=== PATIENT | female | born 1940 | race Caucasian/White ===

== ENCOUNTER 2019-12-03 10:50 | Outpatient (CLI) | payer OTHER, SELFPAY ==
[2019-12-03 11:40] LABS: Hemoglobin 7.9 g/dL (11.5-15.3); Mean Corpuscular HGB Conc 31.6 g/dL (30.0-36.0); Mean Corpuscular Hemoglobin 26.7 pg (28.0-34.0); Mean Corpuscular Volume 84.5 fL (81-99); Mean Platelet Volume 10.2 fL (7.4-10.4); Nucleated Red Blood Cells % 0 %; Platelet Count 35 10^3/cmm (130-400); Red Blood Count 2.96 10^6/uL (4.1-5.3)
[2019-12-03 11:51] LABS: Alanine Aminotransferase 21 U/L (0-33); Alkaline Phosphatase 114 IU/L (35-105); Anion Gap 20.3 (5-19); Aspartate Amino Transferase 11 U/L (0-32); Blood Urea Nitrogen 14 mg/dL (8-23); Calcium 8.9 mg/Dl (8.8-10.2); Carbon Dioxide 21 mmol/L (22-29); Chloride 93 mmol/L (98-107); Globulin 3.3 g/dL (1.3-4.6); Glucose 152 mg/dL (74-106); Lactate Dehydrogenase 605 U/L (135-214); Potassium 3.3 mmol/L (3.5-5.1); Sodium 131 mmol/L (136-145); Total Bilirubin 0.7 mg/dL (0.15-1.2); Total Protein 6.3 g/dL (6.6-8.7); Uric Acid 2.3 mg/dL (2.4-5.7)
[2019-12-03 13:39] LABS: White Blood Count < 0.1 10^3/uL (4.0-10.0)
[2019-12-03 14:57] LABS: Phosphorus 1.8 mg/dL (2.5-4.5)
== END 2019-12-03 10:51 | disposition home or self-care (01) ==
LOC: LAB 10:55
PROVIDERS: Visit Provider Internal Medicine Medical Oncology
DX: C83.38 Diffuse large B-cell lymphoma, lymph nodes of multiple sites (principal)
CPT/HCPCS: 36415; 80053; 83615; 84100; 84550; 85025

== ENCOUNTER 2019-12-05 13:34 | Outpatient (CLI) | payer OTHER, SELFPAY ==
[2019-12-05 14:11] LABS: Hematocrit 21.7 % (37.0-47.0); Hemoglobin 7.2 g/dL (11.5-15.3); Lymphocytes % 33.3 %; Mean Corpuscular HGB Conc 33.2 g/dL (30.0-36.0); Mean Corpuscular Hemoglobin 27.3 pg (28.0-34.0); Mean Corpuscular Volume 82.2 fL (81-99); Mean Platelet Volume 12.8 fL (7.4-10.4); Neutrophils % 66.7 %; Nucleated Red Blood Cells % 0 %; Red Blood Count 2.64 10^6/uL (4.1-5.3); Red Cell Distribution Width 14.4 % (12.1-15.1)
[2019-12-05 14:38] LABS: Alanine Aminotransferase 21 U/L (0-33); Albumin Level 2.5 g/dL (3.5-5.2); Alkaline Phosphatase 137 IU/L (35-105); Anion Gap 24.5 (5-19); Aspartate Amino Transferase 23 U/L (0-32); Blood Urea Nitrogen 29 mg/dL (8-23); Calcium 8.3 mg/Dl (8.8-10.2); Carbon Dioxide 14 mmol/L (22-29); Chloride 98 mmol/L (98-107); Globulin 3.2 g/dL (1.3-4.6); Glucose 129 mg/dL (74-106); Lactate Dehydrogenase 377 U/L (135-214); Sodium 134 mmol/L (136-145); Total Bilirubin 0.6 mg/dL (0.15-1.2); Total Protein 5.7 g/dL (6.6-8.7); Uric Acid 2.8 mg/dL (2.4-5.7)
[2019-12-05 14:43] LABS: Potassium 2.5 mmol/L (3.5-5.1)
[2019-12-05 15:03] LABS: Platelet Count 22 10^3/cmm (130-400); Slide Review Slide Review Perform; White Blood Count 0.3 10^3/uL (4.0-10.0)
== END 2019-12-05 13:35 | disposition home or self-care (01) ==
PROVIDERS: Visit Provider Internal Medicine Medical Oncology
DX: C83.38 Diffuse large B-cell lymphoma, lymph nodes of multiple sites (principal)
CPT/HCPCS: 36415; 80053; 83615; 84550; 85025

== ENCOUNTER 2019-12-05 14:43 | Emergency (ER) | payer MEDICARE, SELFPAY ==
[2019-12-05 14:48] VITALS: BP 53/37; PULSE 109; RESP 18; TEMP 36.7; O2SAT 98; BMI 16.5
--- NOTE | 2019-12-05 15:10 | W.ED.GENADLT ---
HPI - General Adult General: Chief complaint: General Medical Stated complaint: cancer/passing out low blood count Time Seen by Provider: 12/05/19 15:09 History of Present Illness: HPI narrative: 79-year-old female with a history of lymphoma she was recently treated at [facility] and now has severely depressed pancytopenia. She has had a bit of a low-grade fever as well at home and she is very tachycardic and hypotensive when she first arrives. She did not has severe nausea and some loose stools denies hematochezia melena hematemesis or coffee-ground emesis. This started within the last 1 to 2 days Associated symptoms: Reports malaise; Deny chest pain, dyspnea, nausea, rash or vomiting Review of Systems Const: Reports: body aches, fatigue and malaise; Denies: fever, chills or change in appetite ENMT: Denies: throat pain, ear pain, nasal discharge or nasal congestion Card: Denies: chest pain, edema, shortness of breath on exertion or shortness of breath when lying down Resp: Denies: shortness of breath, productive cough or non-productive cough GI: Denies: abdominal pain, nausea, vomiting, vomiting blood, coffee grounds in vomit, diarrhea, constipation, bloating, blood in stool or black tarry stool : Denies: flank pain, difficulty urinating, painful urination, urinary frequency or urinary urgency Skin/Breast: Denies: rash or itching PFSH ED PFSH: Statuses (acute, chronic, etc) shown below reflect problem list status as previously entered and may not be historically accurate Medical History (Updated 12/07/19 @ 12:09 by Phu Agee DO) Lymphoma (Acute) Social History Smoking and tobacco status: former smoker Physical Exam Const: COMMON NORMALS: average body habitus and alert GENERAL APPEARANCE: cooperative, comfortable, well kempt and well developed NUTRITIONAL APPEARANCE: cachectic ORIENTATION/CONSCIOUSNESS: Yes awake, Yes oriented to person and Yes oriented to place HENMT: COMMON NORMALS: normocephalic, head/scalp atraumatic, EAC's normal, TM's normal bilaterally, external nose normal, moist oral mucous membranes and oropharynx normal HEAD & SCALP: normocephalic and atraumatic NOSE: external nose normal EXTERNAL AUDITORY CANAL: EAC's normal TYMPANIC MEMBRANE: TM's normal bilaterally MOUTH: oral and palatal mucosa normal, lip normal and tongue normal THROAT: posterior oropharynx normal and tonsils normal Eye: COMMON NORMALS: PERRL, EOMs intact bilaterally, conjunctivae normal and no scleral icterus CONJUNCTIVA: Yes conjunctivae normal PUPIL: Yes PERRL Neck/C-Spine: COMMON NORMALS: full ROM, no lymphadenopathy, supple, no meningeal signs and thyroid normal THYROID: thyroid normal and asymmetrical Lymph: LYMPHATIC: no lymphadenopathy noted Resp: COMMON NORMALS: normal respiratory effort, no retractions and no use of accessory muscles AUSCULTATION: wheezes and diminished lung sounds Cardio: COMMON NORMALS: regular rate and regular rhythm RATE: regular rate RHYTHM: regular rhythm HEART SOUNDS: no murmurs GI: COMMON NORMALS: normal to inspection, nondistended, normoactive bowel sounds, soft to palpation and no hepatosplenomegaly PALPATION: Yes soft and Yes no hepatosplenomegaly : COMMON NORMALS: Yes no CVA tenderness BLADDER/KIDNEY EXAM: Yes no CVA tenderness Back/Pelvis: COMMON NORMALS: no CVA tenderness LUMBAR SPINE/LOWER BACK: Yes normal to inspection Extremity: COMMON NORMALS: no clubbing, cyanosis or edema, no calf tenderness and no pedal edema Neuro: SENSORIUM/ORIENTATION: Yes alert, Yes oriented to person and Yes oriented to place MENINGEAL SIGNS: Yes no meningeal signs Psych: APPEARANCE: Yes well kempt Skin: COMMON NORMALS: no rashes or lesions noted and skin turgor normal GENERAL SKIN EXAM: no rashes or lesions noted and turgor normal Course ED course: Patient appears to be septic will start on IV antibiotics vancomycin and cefepime cefepime. Discussed with her doctor at [facility] we will go ahead and transfer her via ambulance. She has been started given IV fluids which did improve her blood pressure and also the IV antibiotics as well as cultures. Family understands reason for transfer and we have answered their questions. Vital Signs: Vital signs: Vital Signs Temperature 98.1 F 12/05/19 14:48 Pulse Rate 121 H 12/05/19 19:18 Respiratory Rate 18 12/05/19 19:18 Blood Pressure 105/48 12/05/19 19:18 Pulse Oximetry 99 12/05/19 19:18 MDM - General Adult Lab Data: Labs: Lab Results 12/05/19 12/05/19 12/05/19 Range/Units 15:32 15:32 15:32 WBC < 0.1 L* (4.0-10.0) 10^3/ uL RBC 2.98 L (4.1-5.3) 10^6/u L Hgb 8.1 L (11.5-15.3) g/dL Hct 25.9 L (37.0-47.0) % MCV 86.9 D (81-99) fL MCH 27.2 L (28.0-34.0) pg MCHC 31.3 D (30.0-36.0) g/dL RDW 14.6 (12.1-15.1) % Plt Count 22 L* (130-400) 10^3/c mm MPV 13.8 H (7.4-10.4) fL Neut % (Auto) 66.7 % Lymph % (Auto) 33.3 % [place] % (Auto) 0.0 % Eos % (Auto) 0.0 % Baso % (Auto) 0.0 % Neut # (Auto) 0.0 L* (1.8-7.7) 10^3/u L Lymph # (Auto) 0.0 L (0.8-4.8) 10^3/u L [place] # (Auto) 0.0 L (0.2-0.9) 10^3/u L Eos # (Auto) 0.0 (0.0-0.8) 10^3/u L Baso # (Auto) 0.0 (0.0-0.1) 10^3/u L Nucleated RBC % (a uto) 0 % Nucleated RBCs # 0.0 /100WBC Specimen Type Sample Site ABG pH (7.35-7.45) ABG pCO2 (35-45) mmHg ABG pO2 (80.0-100.0) mmH g ABG HCO3 (22-26) mmol/L ABG Base Excess (-2.0-2.0) mmol/ L Steven Test Hematocrit (37-47) % Hgb O2 Saturation (95-100) % Carboxyhemoglobin (0.4-20.1) %THgb Methemoglobin (0.4-1.5) % Total Hemoglobin (12-16) g/dL O2 Delivery Device FiO2 % [employer] Specialist ID Sodium (136-145) mmol/L Potassium (3.5-5.1) mmol/L Chloride (98-107) mmol/L Carbon Dioxide (22-29) mmol/L Anion Gap (5-19) BUN (8-23) mg/dL Creatinine (0.5-0.9) mg/dL Glucose (74-106) mg/dL Lactate 2.4 H (0.5-2.2) mmol/L Calcium (8.8-10.2) mg/Dl Phosphorus (2.5-4.5) mg/dL Magnesium (1.7-2.3) mg/dL Total Bilirubin (0.15-1.2) mg/dL AST (0-32) U/L ALT (0-33) U/L Alkaline Phosphata se (35-105) IU/L Creatine Kinase (26-192) U/L Total Protein (6.6-8.7) g/dL Albumin (3.5-5.2) g/dL Globulin (1.3-4.6) g/dL Lipase (13-60) U/L Serum Ketones Negative (Negative) Influenza Type A A g (Negative) POC Influenza B Ag (Negative) 12/05/19 12/05/19 12/05/19 Range/Units 15:39 16:27 17:20 WBC (4.0-10.0) 10^3/ uL RBC (4.1-5.3) 10^6/u L Hgb (11.5-15.3) g/dL Hct (37.0-47.0) % MCV (81-99) fL MCH (28.0-34.0) pg MCHC (30.0-36.0) g/dL RDW (12.1-15.1) % Plt Count (130-400) 10^3/c mm MPV (7.4-10.4) fL Neut % (Auto) % Lymph % (Auto) % [place] % (Auto) % Eos % (Auto) % Baso % (Auto) % Neut # (Auto) (1.8-7.7) 10^3/u L Lymph # (Auto) (0.8-4.8) 10^3/u L [place] # (Auto) (0.2-0.9) 10^3/u L Eos # (Auto) (0.0-0.8) 10^3/u L Baso # (Auto) (0.0-0.1) 10^3/u L Nucleated RBC % (a uto) % Nucleated RBCs # /100WBC Specimen Type Arterial Sample Site Radial, left ABG pH 7.49 H (7.35-7.45) ABG pCO2 23.7 L (35-45) mmHg ABG pO2 87.8 (80.0-100.0) mmH g ABG HCO3 18.1 L (22-26) mmol/L ABG Base Excess -4.5 L (-2.0-2.0) mmol/ L Steven Test Pos Hematocrit 23.3 L (37-47) % Hgb O2 Saturation 97.3 (95-100) % Carboxyhemoglobin 0.4 (0.4-20.1) %THgb Methemoglobin 0.4 (0.4-1.5) % Total Hemoglobin 7.6 L (12-16) g/dL O2 Delivery Device Room air FiO2 21.0 % [employer] Specialist ID glc Sodium 133 L (136-145) mmol/L Potassium 2.3 L* (3.5-5.1) mmol/L Chloride 96 L (98-107) mmol/L Carbon Dioxide 19 L (22-29) mmol/L Anion Gap 20.3 H (5-19) BUN 33 H (8-23) mg/dL Creatinine 2.2 H (0.5-0.9) mg/dL Glucose 127 H (74-106) mg/dL Lactate (0.5-2.2) mmol/L Calcium 8.2 L (8.8-10.2) mg/Dl Phosphorus 2.1 L (2.5-4.5) mg/dL Magnesium 1.8 (1.7-2.3) mg/dL Total Bilirubin 0.5 (0.15-1.2) mg/dL AST 22 (0-32) U/L ALT 19 (0-33) U/L Alkaline Phosphata se 133 H (35-105) IU/L Creatine Kinase 12 L (26-192) U/L Total Protein 5.8 L (6.6-8.7) g/dL Albumin 2.4 L (3.5-5.2) g/dL Globulin 3.4 (1.3-4.6) g/dL Lipase 19 (13-60) U/L Serum Ketones (Negative) Influenza Type A A g Negative (Negative) POC Influenza B Ag Negative (Negative) Discharge Plan Discharge Patient Disposition: Xfer Other Referrals: Juan Johnson [Family Provider] - Discharge Date/Time: 12/05/19 20:23 Coding Level of Care Code ED [employer]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
--- NOTE | 2019-12-05 15:14 | XRR_ITS ---
PROCEDURE INFORMATION: Exam: XR Chest, 1 View Exam date and time: 12/05/2019 3:27 PM Age: 79 years old Clinical indication: Other: Low blood sugar; Additional info: Dyspnea TECHNIQUE: Imaging protocol: XR of the chest Views: 1 view. COMPARISON: No relevant prior studies available. FINDINGS: Lungs: Unremarkable. No consolidation. Pleural space: Unremarkable. No pleural effusion. No pneumothorax. Heart/Mediastinum: Unremarkable. No cardiomegaly. Bones/joints: Nonspecific Subchondral cyst is seen in the right humeral head XR/XR chest 1V portable [id number] IMPRESSION: 1. No acute findings. 2. Subchondral cyst right humeral head
[2019-12-05 15:49] LABS: Hematocrit 25.9 % (37.0-47.0); Hemoglobin 8.1 g/dL (11.5-15.3); Lymphocytes % 33.3 %; Mean Corpuscular HGB Conc 31.3 g/dL (30.0-36.0); Mean Corpuscular Hemoglobin 27.2 pg (28.0-34.0); Mean Corpuscular Volume 86.9 fL (81-99); Mean Platelet Volume 13.8 fL (7.4-10.4); Neutrophils % 66.7 %; Nucleated Red Blood Cells % 0 %; Red Blood Count 2.98 10^6/uL (4.1-5.3); Red Cell Distribution Width 14.6 % (12.1-15.1)
[2019-12-05] MEDS: sodium chloride 0.9% 1,000 ML 999 ML IV (15:55)
[2019-12-05 16:03] LABS: Lactate (Lactic Acid level) 2.4 mmol/L (0.5-2.2)
[2019-12-05 16:11] LABS: Influenza A by IFA Negative (Negative); Influenza B by IFA Negative (Negative)
[2019-12-05 16:18] LABS: Ketone (Acetest) Serum Negative (Negative)
[2019-12-05 16:20] LABS: Platelet Count 22 10^3/cmm (130-400); White Blood Count < 0.1 10^3/uL (4.0-10.0)
[2019-12-05 16:21] LABS: Slide Review Slide Review Perform
[2019-12-05 17:11] LABS: Alanine Aminotransferase 19 U/L (0-33); Albumin Level 2.4 g/dL (3.5-5.2); Alkaline Phosphatase 133 IU/L (35-105); Anion Gap 20.3 (5-19); Aspartate Amino Transferase 22 U/L (0-32); Blood Urea Nitrogen 33 mg/dL (8-23); Calcium 8.2 mg/Dl (8.8-10.2); Carbon Dioxide 19 mmol/L (22-29); Chloride 96 mmol/L (98-107); Creatine Phosphokinase 12 U/L (26-192); Globulin 3.4 g/dL (1.3-4.6); Glucose 127 mg/dL (74-106); Lipase 19 U/L (13-60); Magnesium 1.8 mg/dL (1.7-2.3); Phosphorus 2.1 mg/dL (2.5-4.5); Sodium 133 mmol/L (136-145); Total Bilirubin 0.5 mg/dL (0.15-1.2); Total Protein 5.8 g/dL (6.6-8.7)
[2019-12-05] MEDS: cefepime 2,000 MG in sodium chloride 0.9% (plus) 50 ML 100 MG IV (17:24)
[2019-12-05] MEDS: SODIUM CHLORIDE 0.9% 1224.7 ML IV (17:24)
[2019-12-05 17:31] LABS: Potassium 2.3 mmol/L (3.5-5.1)
[2019-12-05 17:33] VITALS: BP 113/55; PULSE 90; RESP 18; O2SAT 96
[2019-12-05 17:33] LABS: ABG PCO2 23.7 mmHg (35-45); ABG PH Result 7.49 (7.35-7.45); Arterial Blood Gas Hematocrit 23.3 % (37-47); Base Excess ABG -4.5 mmol/L (-2.0-2.0); Blood Gas Allen Test Pos; Blood Gas Operator Identificat glc; Blood Gas Sample Site Radial, left; Blood Gas Sample Type Arterial; Carboxyhemoglobin 0.4 %THgb (0.4-20.1); HCO3 ABG 18.1 mmol/L (22-26); HGB O2 Sat 97.3 % (95-100); Methemoglobin 0.4 % (0.4-1.5); Oxygen Device ROOM AIR; PO2 ABG 87.8 mmHg (80.0-100.0); Total Hemoglobin 7.6 g/dL (12-16)
[2019-12-05 18:51] VITALS: BP 104/62; PULSE 99; RESP 20; O2SAT 99
[2019-12-05] MEDS: ondansetron 2 mg/ML SDV 2 mL 4 MG IVP (19:15)
[2019-12-05 19:18] VITALS: BP 105/48; PULSE 121; RESP 18; O2SAT 99
[2019-12-05] MEDS: vancomycin 750 MG in sodium chloride 0.9% 250 ML 250 MG IV (19:43)
[2019-12-05] MEDS: potassium chloride premix 40 MEQ/100 ML PREMIX 25 MEQ IV (20:18)
--- NOTE | 2019-12-06 13:10 | PC.NURSE ---
CRITICAL LABS CALLED TO [facility]. NURSE JAYCEE ODELL RN TOOK THE CRITICAL LABS AND THEY WERE FAXED TO [phone]
== END 2019-12-05 20:23 | disposition other institution (70) ==
PROVIDERS: Emergency Provider Family Medicine
DX: D61.818 Other pancytopenia (principal); Z85.72 Personal history of non-Hodgkin lymphomas; Z87.891 Personal history of nicotine dependence
CPT/HCPCS: 36415; 36600; 71045; 80053; 82009; 82550; 82805; 83605; 83690; 83735; 84100; 85025; 87040; 87077; 87186; 87205; 87804; 96360; 96361; 96365; 96366; 96374; 99282; J0692; J2405; J3370; J3480; J7030; J7050

== ENCOUNTER 2019-12-19 07:51 | Outpatient (CLI) | payer OTHER, SELFPAY ==
[2019-12-18 06:01] LABS: Basophils % 0.4 %; Eosinophils # 0.1 10^3/uL (0.0-0.8); Eosinophils % 0.7 %; Hematocrit 22.2 % (37.0-47.0); Hemoglobin 7.2 g/dL (11.5-15.3); Lymphocytes # 0.4 10^3/uL (0.8-4.8); Lymphocytes % 4.8 %; Mean Corpuscular HGB Conc 32.4 g/dL (30.0-36.0); Mean Corpuscular Hemoglobin 27.2 pg (28.0-34.0); Mean Corpuscular Volume 83.8 fL (81-99); Mean Platelet Volume 11.1 fL (7.4-10.4); Monocytes # 0.7 10^3/uL (0.2-0.9); Monocytes % 9.3 %; Neutrophils # 5.4 10^3/uL (1.8-7.7); Nucleated Red Blood Cells # 0.1 /100WBC; Nucleated Red Blood Cells % 0.7 %; Platelet Count 172 10^3/cmm (130-400); Red Blood Count 2.65 10^6/uL (4.1-5.3); Red Cell Distribution Width 14.8 % (12.1-15.1); White Blood Count 7.2 10^3/uL (4.0-10.0)
[2019-12-18 06:32] LABS: Anion Gap 14.2 (5-19); Blood Urea Nitrogen 6 mg/dL (8-23); Carbon Dioxide 26 mmol/L (22-29); Chloride 104 mmol/L (98-107); Glucose 87 mg/dL (74-106); Osmolality Calculated 285 mOsm/kg (285-295); Potassium 4.2 mmol/L (3.5-5.1); Sodium 140 mmol/L (136-145)
[2019-12-18 06:52] LABS: Slide Review Slide Review Perform
[2019-12-18 06:54] LABS: Absolute Segmented Neutrophil 5.1 10/cmm (1.6-7.1); Band Neutrophils Absolute 1.1 10^3/cmm (0.0-1.2); Lymphocytes 3 %; Monocytes Absolute 0.5 10^3/cmm (0.1-0.6); Segmented Neutrophils 71 %; Total Cells Counted 100 (0-100)
[2019-12-18 06:55] LABS: Platelet Estimate Normal (Normal)
[2019-12-19 08:16] VITALS: BP 167/84; PULSE 84; RESP 18; TEMP 36.4; O2SAT 97; BMI 16.5
[2019-12-19 08:26] LABS: Hematocrit 24.9 % (37.0-47.0); Hemoglobin 7.8 g/dL (11.5-15.3)
[2019-12-19 09:28] VITALS: BP 167/84; PULSE 84; RESP 18; TEMP 36.4
[2019-12-19 09:45] VITALS: BP 167/77; PULSE 78; RESP 18; TEMP 37.2; O2SAT 97
[2019-12-19 10:15] VITALS: BP 171/76; PULSE 72; RESP 18; TEMP 36.4; O2SAT 97
[2019-12-19 11:00] VITALS: BP 172/76; PULSE 71; RESP 18; TEMP 36.4; O2SAT 97
[2019-12-19 11:35] VITALS: BP 175/80; PULSE 73; RESP 18; TEMP 37.2
[2019-12-19 12:27] LABS: Basophils # 0.1 10^3/uL (0.0-0.1); Basophils % 0.7 %; Eosinophils # 0.1 10^3/uL (0.0-0.8); Eosinophils % 1.2 %; Hemoglobin 10.2 g/dL (11.5-15.3); Lymphocytes # 0.4 10^3/uL (0.8-4.8); Lymphocytes % 4.7 %; Mean Corpuscular HGB Conc 32.9 g/dL (30.0-36.0); Mean Corpuscular Hemoglobin 28.7 pg (28.0-34.0); Mean Corpuscular Volume 87.3 fL (81-99); Mean Platelet Volume 10.9 fL (7.4-10.4); Monocytes # 0.8 10^3/uL (0.2-0.9); Monocytes % 9.4 %; Neutrophils # 5.8 10^3/uL (1.8-7.7); Nucleated Red Blood Cells # 0.1 /100WBC; Nucleated Red Blood Cells % 0.7 %; Platelet Count 205 10^3/cmm (130-400); Red Blood Count 3.55 10^6/uL (4.1-5.3); Red Cell Distribution Width 13.6 % (12.1-15.1); White Blood Count 8.1 10^3/uL (4.0-10.0)
[2019-12-19 12:42] LABS: Slide Review Slide Review Perform
== END 2019-12-19 07:52 | disposition home or self-care (01) ==
PROVIDERS: Internal Medicine Medical Oncology; Family Provider Family Medicine; Visit Provider Family Medicine
DX: C83.30 Diffuse large B-cell lymphoma, unspecified site (principal)
CPT/HCPCS: 36430; 36592; 80048; 85007; 85014; 85018; 85025; 86850; 86900; J1642; P9016